=== PATIENT | male | born 1950 | race Caucasian/White ===

== ENCOUNTER 2016-09-20 13:23 | Emergency (ER) | payer OTHER ==
[2016-09-20 13:11] LABS: URINE SOURCE CLEAN CATCH
[2016-09-20 13:15] LABS: URINE APPEARANCE CLEAR; URINE BILIRUBIN NEG (NEG); URINE BLOOD NEG (NEG); URINE COLOR YELLOW; URINE KETONE NEG (NEG); URINE LEUKOCYTE ESTERASE NEG (NEG); URINE NITRATE NEG (NEG); URINE PH 5.5 (5-8); URINE PROTEIN NEG (NEG); URINE UROBILINOGEN 0.2 MG/DL (NORM)
[2016-09-20 13:22] LABS: MICRO INDICATED? NO; URINE GLUCOSE 50 MG/DL (NORM)
[~2016-09-20 13:23] MED LIST: ARIXTRA5 MG/0.4 M SQ; B/P MED; CALCIUM + D 6001 TA1 PO; CHEWABLE ASPIRI81 MG PO; DESYREL150 M1 PO; FISH OIL 1,0001 EAC2 PO; FISH OIL CONC1000 MG PO; FLOMAX0.4 M1 DOB; FLONASE 0.05% N16 G1; GLUCOSAMINE & C1 CAP PO; LASIX20 MG PO; LORTAB 7.5-5001 TAB PO; LOVENOX40 MG/0.4 INJ; LYRICA50 MG PO; MAXILIFE RICE 51 CAP PO; Mucomyst PO; NATURAL VIT1000 UNIT PO; NEURONTIN PO; NEURONTIN100 MG PO; SYMBICORT INH; TRAZADONE PO; VITAMIN C250 MG PO; WELLBUTRIN XL PO; WELLBUTRIN XL150 MG PO; ZOCOR PO; ZOLOFT50 MG PO
[2016-09-20 13:25] LABS: AMPHETAMINE NEG (NEG); BARBITURATES NEG (NEG); BENZODIAZEPINES NEG (NEG); COCAINE NEG (NEG); MARIJUANA NEG (NEG); OPIATES NEG (NEG); TRICYCLIC ANTIDEPRESSANTS NEG (NEG); U METHADONE NEG (NEG)
== END 2016-09-20 17:53 | disposition home or self-care (01) ==
LOC: SED 13:23
PROVIDERS: Emergency Medicine
DX: R33.9 Retention of urine, unspecified (principal); I10 Essential (primary) hypertension; I25.2 Old myocardial infarction; F20.9 Schizophrenia, unspecified; Z88.8 Allergy status to other drugs, medicaments and biological substances
CPT/HCPCS: 51702; 80307; 81003; 99284

== ENCOUNTER 2016-12-08 10:14 | Emergency (ER) | payer OTHER ==
--- NOTE | ~2016-12-08 | CR127 ---
[facility] A Service of [facility] RADIOLOGY TEXT RESULTS PATIENT: CAMRON PALOMARES LOCATION: SED : 54 UNIT #: [id number] AGE: [address]: Nia Luke SEX: M ORDER DR: [id number] [place] [id number] E MR#: [id number] Acc #: [id number] NAME: CAMRON PALOMARES. : 1950 SEX: M STUDY DATE/TIME: 12/08/2016 10:26 UNIT: SED ROOM: STUDY DESCRIPTION: CR Foot Complete Min 3 View Rt Attending Physician: Nia Luke P.A.-C. Ordering Physician: Nia Luke P.A.-C. Primary Care Physician: No Primary Care Physician MEDICAL IMAGING REPORT This report is preliminary unless electronic signature is present. EXAM Right foot 12/08. INDICATIONS Foot pain after injury working out last night. FINDINGS The tarsal, metatarsal, and phalangeal elements are all anatomically normal in position and alignment. There are no articular defects. No fractures or radiopaque foreign bodies in the soft tissues are apparent. IMPRESSION Normal foot. Dictated by... Wilson Marin Jr., M.D. THIS IS AN ELECTRONICALLY VERIFIED REPORT Wilson Marin Jr., M.D. at 12/09/2016 6:08 AM CARMEN/shayne TD: 12/08/2016 13:45 JOB #: [id number] MEDICAL IMAGING REPORT Page 1 of 1
[2016-12-08] MEDS ORDERED: INSULIN (10:25)
== END 2016-12-08 11:12 | disposition home or self-care (01) ==
LOC: SED 10:14
DX: S93.611A Sprain of tarsal ligament of right foot, initial encounter (principal); J44.9 Chronic obstructive pulmonary disease, unspecified; E11.9 Type 2 diabetes mellitus without complications; I10 Essential (primary) hypertension; E78.5 Hyperlipidemia, unspecified; Z87.891 Personal history of nicotine dependence; Z79.4 Long term (current) use of insulin; Z79.899 Other long term (current) drug therapy; Z90.2 Acquired absence of lung [part of]; W22.8XXA Striking against or struck by other objects, initial encounter; Y92.89 Other specified places as the place of occurrence of the external cause
CPT/HCPCS: 29515; 73630; 99283